=== PATIENT | female | born 1970 | race Caucasian/White ===

== ENCOUNTER → 2017-11-19 08:45 | Outpatient (CLI) | payer OTHER, SELFPAY ==
--- NOTE | 2017-11-19 | IMM_PTH ---
PATIENT: BRISEIDA CAIN LOC: [facility] U#:[id number] AGE/SX: 54/F ROOM: RE11/19/[address]: Dr. Kevin Ruiz MD : 1970 BED: DIS: SPEC #: [id number] RECD: 11/20/17 11:39 STATUS: PADMA REHector #: [id number] KIN: 11/19/17 00:[address]: Kevin Ruiz DEPT: IMMUNOHISTOCHEMISTRY RECD BY: Marcy Almendarez ENTERED: 11/20/17 11:39 SP TYPE: IMMUNO OTHR DR: Laurel Rueda, ROOF PLUMBER-C Tissues: Right breast, NOS Procedures: CK8 (initial) CALPONIN-1 (add) P40 (add) PHYSICIAN & INSTITUTION [place] [address] SPECIMEN INFORMATION: Tissue Source: Right breast Clinical Info: Right post/lateral microcalcifications Specimen Number: [id number] #1 CPT code: 20667, 70893 x2 METHODOLOGY: Deparaffinized sections of prefer/formalin-fixed tissue or PAP/DQ stained slides are incubated with monoclonal/polyclonal antibodies/oligonucleotide probes. Localization is made via biotin free immunoperoxidase method. Appropriate controls are performed and reacted as expected. Results on target cell population are indicated in the following table: RESULTS: ANTIBODY / CLONE RESULT Block 1 CK8 ([id number]) positive P40 (BC28) positive Calponin-1 (DX188C) positive These tests were developed and their performance characteristics determined by [facility]. They may not have been cleared or approved by the U.S. Food and Drug Administration. The FDA has determined that such clearance or approval is not necessary. INTERPRETATION: Right breast, stereotactic needle core biopsy: Benign breast tissue. AM:nicky 11/21/17
--- NOTE | 2017-11-19 08:49 | PCM.HP.BLA ---
History and Physical Date of Admission: 11/19/17 HISTORY AND PHYSICAL - BREAST COMPLAINT ? Panda Moore 1970 ? ? REFERRING PHYSICIAN: ~~Laurel Rueda (Radha* ? CHIEF COMPLAINT: ~~Right breast microcalcifications ? HPI: The patient is a 46 year old female with a complaint of an abnormal mammogram. ~The patient had a mammogram on July 27 of August 01, 2017~which demonstrated: ? IMPRESSION: SUSPICIOUS FINDING - BIOPSY SHOULD BE CONSIDERED The clustered regional amorphous calcifications in the right breast are suspicious of malignancy. ?A stereotactic biopsy is recommended. Jose Antonio schwartz/deshawn:08/01/2017 15:37:59 Facilities Clerk: Delmis LEMA)(Fredo), [facility] letter sent: Abnormal Mammogram BI-RADS: 4 Suspicious finding - Biopsy should be considered Fruit Rancher: Deshawn Transcribe Date/Time: Aug 01 2017 ?3:26P Dictated by: JOSE ANTONIO TELLEZ MD This examination was interpreted and the report reviewed and electronically signed by: JOSE ANTONIO TELLEZ MD on Aug 01 2017 ?3:37PM ?EST Results-Findings * * *Final Report* * * DATE OF EXAM: Aug 01 2017 ?3:26PM ? WRW ?~0620 ?- ?BECK DIAGNOSTIC JAJA ?/ PROCEDURE REASON: CALL BACK BILATERAL BREAST / ABNORMAL MAMMOGRAM ??~?~ * * * * Physician Interpretation * * * * RESULT: #[id number] - BECK DIAGNOSTIC JAJA BILATERAL DIGITAL DIAGNOSTIC MAMMOGRAM WITH CAD: 08/01/2017 HISTORY: Call Back Bilateral Breast / Abnormal Mammogram. RESULT: TECHNIQUE: ?The study was acquired using full field digital technology and interpreted from soft copy. Current study was also evaluated with a Computer Aided Detection (CAD). Comparison is made to exams dated: ?07/27/2017 mammogram - [facility], 07/18/2016 mammogram - [facility], 06/20/2016 mammogram - [facility], 03/04/2015 mammogram - [facility], and 02/17/2015 mammogram - [facility]. The tissue of both breasts is heterogeneously dense. This may lower the sensitivity of mammography. Subtle left calcifications appear to be stable since 2014 and appear to be within the skin. There are clustered regional amorphous calcifications in the right breast superior lateral quadrant posterior depth. No other significant masses, calcifications, or other findings are seen in either breast. ? ? ? The patient denies a history of breast masses. ~She does not~~perform a self breast exam routinely. ~She notes no skin changes. ~She denies nipple discharge. ~She notes no axillary masses. ~She notes no family history of breast problems. ~She notes no significant breast trauma. ~She had a previous left breast biopsy for microcalcifications which returned as benign~in the past. ? ? The patient is being seen by me today at the request of Laurel Rueda CNP~~for my opinion and advice regarding breast microcalcifications. ? PAST?MEDICAL?HISTORY PAST MEDICAL HISTORY Diagnosis Date Abnormal mammogram, unspecified 03/16/2015 Depression ? Dysmetabolic syndrome X ? Hemorrhoids 05/27/2014 Impaired glucose tolerance test ? Leiomyoma of uterus, unspecified ? Rectocele 05/27/2014 RHINITIS CHRONIC 11/14/2005 Unspecified sleep apnea ? ~~ ? ? PAST?SURGICAL?HISTORY PAST SURGICAL HISTORY Procedure Laterality Date APPENDECTOMY ? ? BREAST BIOPSY W/STEREOTACTIC GUIDANCE Left 04-01-15 D&C, DIAG AND/OR THERAPEUTIC ? 11/30/06 ? missed AB ENDOMETRIAL BIOPSY ? 01/23/2013 L'SCOPE DX W/WO BRUSHINGS/WASHINGS ? ? ? Laparoscopy/hysteroscopy/chromotubation LAP CHOLECYSTECT/CHOLANGIOGRAPHY ? 09/20/09 ? Normal IOC REMOVAL ADENOIDS,PRIMARY,<12 Y/O ? ? ? Adenoidectomy REMOVAL OF OVARY(S) ? 11/30/06 ? Laparascpic RSO- mature teratoma REMOVAL OF TONSILS,<12 Y/O ? ? ? Tonsillectomy ? ? ? CURRENT?MEDICATIONS ? Current Outpatient Prescriptions: escitalopram oxalate (LEXAPRO) 10 mg tablet Take 1 tablet by mouth once daily. Disp: 30 tablet Rfl: 3 metFORMIN ER (GLUCOPHAGE XR) 500 mg 24 hr tablet Take 2 tablets by mouth twice daily. Disp: 360 tablet Rfl: 3 buPROPion SR (ZYBAN SR; WELLBUTRIN SR) 150 mg 12 hr tablet Take 1 tablet by mouth twice daily. Disp: 180 tablet Rfl: 3 blood sugar diagnostic ([employer] ULTRA TEST) test strip USE INSTRUCTED ONCE DAILY Disp: 100 Strip Rfl: 0 COMPOUNDED PRESCRIPTION CPAP supplies DX:G47.33 Disp: 1 Each Rfl: 12 hydrocortisone 2.5 % cream Apply 1 application to affected area twice daily. Apply to affected area (under breast) sparingly. Disp: 20 g Rfl: 0 Omeprazole 40 mg capsule Take 1 capsule by mouth once daily. Disp: 30 capsule Rfl: 2 Magnesium Oxide 500 mg tab Take 1 tablet by mouth daily at bedtime. Disp: Rfl: 0 CPAP Initiate CPAP @ 14 cm of water with humidification. Mask (per patient preference) optional chin strap (if indicated) , filters, tubing, humidifier and lifetime supplies. Disp: 1 Device Rfl: 0 levonorgestrel (MIRENA) 20 mcg/24 hour (5 years) IUD 1 Each by INTRAUTERINE route continuous. Disp: 1 Each Rfl: 0 scopolamine 1.5 mg TRANSDERM. Apply 1 Patch as directed every 72 hours. Apply patch to skin 4 hrs before travel. Disp: 6 Patch Rfl: 1 pravastatin (PRAVACHOL) 20 mg tablet Take 1 tablet by mouth daily at bedtime. HOLD Disp: Rfl: ? No current facility-administered medications for this visit. ? ALLERGIES: Review of patient's allergies indicates no known allergies. ? PERSONAL HISTORY: SOCIAL?HISTORY Social History ~~Marital status: ~~~~~~~~~~~Spouse name: ~~~~~~~~~~~~~~~~~~ ~~Years of education: 16 ~~~~~~~~~~~~~Number of children: 0 ~~~~~~~~ ? 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 Social History Main Topics ~~Smoking status: Never Smoker ~~~~~~~~~~~~~~~~~~~~~~~~~~~~~~~~~~~~~~~~~~~~~~~~~~~~~~~~~ ? ~~Smokeless status: Never Used ~~~~~~~~~~~~~~~~~~~ ~~Alcohol use: No ~~~~~~~~~ ~~Drug use: No ~~~~~~~~~ ~~Sexual activity: Yes ~~~~~~~~~~~~~~Partners with: Male ~~~~~ control/protection: IUD ? ~~ ? FAMILY HISTORY: FAMILY?HISTORY FAMILY HISTORY Problem Relation Age of Onset Colon Cancer Mother ? ? ? 50's Coronary Artery Disease Mother ? Arthritis Mother ? Heart Mother ? ? ? AR Lipids Mother ? Diabetes Father ? Hypertension Father ? Lipids Father ? ? ? REVIEW OF SYMPTOMS: ~~The review of systems data was entered by the nurse and reviewed by me ? Nursing Notes: America Cortez Ma ~08/10/2017 ~4:04 PM ~Signed REVIEW OF SYSTEMS: ~~~~~General:~~~The patient denies fatigue, denies weight loss, denies weight gain, denies feeling hot, and denies feelings of cold. ~~~~~Eyes: ~The patient denies glaucoma, denies eye injury/surgery, wears glasses or contacts. ~~~~~Ear/Nose/Throat: ~The patient denies allergies, denies hayfever, denies ear infections, and denies bloody noses. ~~~~~Cardiovascular: ~The patient denies chest pain, denies heart disease, denies high blood pressure,denies cardiac stent, denies prior heart attack, denies irregular heart beat, denies high cholesterol, ~denies poor circulation, denies heart failure, other cardiac issues, denies claudication, denies cold feet, denies peripheral arterial stent. ~~~~~Respiratory: ~The patient denies tuberculosis, denies pneumonia, denies frequent cough, denies pulmonary embolism, denies shortness of breath, and denies coughing up blood. ~~~~~Gastrointestinal: ~The patient denies difficulty swallowing, NOTES acid reflux, denies ulcers, denies vomiting, denies jaundice/hepatitis, denies gallbladder problems, denies black or tarry stools, NOTES hemorrhoids, denies bleeding from rectum, denies diverticulitis, denies constipation, denies diarrhea, denies loss of stool control, and denies hernias. ~~~~~Kidney/Bladder: ~The patient denies kidney stones, denies urine infections, and denies bloody urine. ~~~~~Skin: ~The patient denies a history of skin cancer, denies bleeding/changing moles, and NOTES a history of skin rash. ~~~~~Neurologic: ~The patient denies a history of epilepsy/convulsions, denies headaches, denies head/spinal injuries, and denies stroke/TIA. ~~~~~Psychiatric: ~The patient denies psychiatric medications, NOTES depression, and denies voices, denies substance abuse. ~~~~~Endocrine: ~The patient denies thyroid disorders, NOTES diabetes, and denies hormonal problems. ~~~~~Hematologic: ~The patient denies a history of bruising, denies bleeding, and denies anemia, denies blood clots. ~~~~~Infections: ~The patient NOTES a history of measles and mumps, denies rheumatic fever, and denies sexually transmitted diseases. ~~~~~Musculoskeletal: ~The patient denies back pain/injury, denies back problems, NOTES sciatica, denies knee/foot trouble, denies arthritis, or denies gout. ? ? When was patient's last Mammogram screening? 08/01/2017 ? ~Last Colonoscopy: ~06/03/2014 ? America Cortez Ma ? ?? PHYSICAL EXAMINATION: ? General: ~The patient is 46 year old female, well nourished, well hydrated in no acute distress. ~The patient is oriented to time, place, and person. ? VITALS: Blood pressure 138/74, pulse 64, height 166.4 cm (5' 5.5), weight 96.4 kg (212 lb 9.6 oz).~Body mass index is 34.84 kg/(m^2).~ ? HEENT: ~Normal cephalic, ataumatic, pupils are equally round, sclera are anicteric, mucous membranes are moist, oropharynx is clear. ~Neck has no masses, asymmetry or lymphadenopathy. ~Thyroid is unremarkable. ? Respiratory: ~Clear to auscultation and percussion. ~Normal respiratory excursion and pattern. ? Cardiac: ~Examination is regular rate and rhythm. ? Abdominal exam: ~Soft, nontender, ~with no palpable masses. ~No hepatosplenomegaly. ~No palpable hernias. ? Rectal exam: ~exam deferred Extremities: ~no clubbing, cyanosis or edema. ~No adenopathy. ? Breast: ~Visual inspection reveals no retractions, nipple inversion, or skin changes. ~Palpation of the right breast reveals no dominant or suspicious masses, but multiple benign-feeling nodules. ~Palpation of the left breast reveals no dominant or suspicious masses, but multiple benign-feeling nodules. ~Axillary exam demonstrates no suspicious masses in either the left or right axilla. ~There is no nipple discharge expressed from either the left or right breast. ? LABORATORY VALUES: As Noted ? RADIOLOGIC STUDIES: ~As Noted ? Assessment ~ IMPRESSION: Right breast microcalcifications ? PLAN: ~I plan to perform a stereotactic biopsy of the right breast. ~The planned surgical procedure was discussed extensively with the patient. ~The risks, benefits, anticipated outcomes and possible complications were mentioned. ~My staff has also explained the procedure in understandable terms and the patient was given the option to take printed material concerning the planned procedure. ~The patient had the opportunity to ask questions concerning the planned procedure. ~The patient freely consents to the planned procedure. ~~~ ? Diagnoses: (R92.0) Microcalcification of right breast on mammogram ~(primary encounter diagnosis) ? Return to Clinic: The patient is instructed to follow-up with me after the testing has been completed. ? Kevin Ruiz MD
--- NOTE | 2017-11-19 09:16 | HP.PCM_ITS ---
History and Physical Date of Admission: 11/19/17 HISTORY AND PHYSICAL - BREAST COMPLAINT ? Panda Moore 1970 ? ? REFERRING PHYSICIAN: ~~Laurel Rueda (Radha* ? CHIEF COMPLAINT: ~~Right breast microcalcifications ? HPI: The patient is a 46 year old female with a complaint of an abnormal mammogram. ~The patient had a mammogram on July 27 of August 01, 2017~ which demonstrated: ? IMPRESSION: SUSPICIOUS FINDING - BIOPSY SHOULD BE CONSIDERED The clustered regional amorphous calcifications in the right breast are suspicious of malignancy. ?A stereotactic biopsy is recommended. Jose Antonio schwartz/deshawn:08/01/2017 15:37:59 Pipe Welder: Delmis LEMA)(Fredo), [facility] letter sent: Abnormal Mammogram BI-RADS: 4 Suspicious finding - Biopsy should be considered Nut Cracker: Deshawn Transcribe Date/Time: Aug 01 2017 ?3:26P Dictated by: JOSE ANTONIO TELLEZ MD This examination was interpreted and the report reviewed and electronically signed by: JOSE ANTONIO TELLEZ MD on Aug 01 2017 ?3:37PM ?EST Results-Findings * * *Final Report* * * DATE OF EXAM: Aug 01 2017 ?3:26PM ? WRW ?~0620 ?- ?BECK DIAGNOSTIC JAJA ?/ PROCEDURE REASON: CALL BACK BILATERAL BREAST / ABNORMAL MAMMOGRAM ??~?~ * * * * Physician Interpretation * * * * RESULT: #[id number] - BECK DIAGNOSTIC JAJA BILATERAL DIGITAL DIAGNOSTIC MAMMOGRAM WITH CAD: 08/01/2017 HISTORY: Call Back Bilateral Breast / Abnormal Mammogram. RESULT: TECHNIQUE: ?The study was acquired using full field digital technology and interpreted from soft copy. Current study was also evaluated with a Computer Aided Detection (CAD). Comparison is made to exams dated: ?07/27/2017 mammogram - [facility], 07/18/2016 mammogram - [facility], 06/20/2016 mammogram - [facility], 03/04/2015 mammogram - [facility], and 02/17/2015 mammogram - [facility]. The tissue of both breasts is heterogeneously dense. This may lower the sensitivity of mammography. Subtle left calcifications appear to be stable since 2014 and appear to be within the skin. There are clustered regional amorphous calcifications in the right breast superior lateral quadrant posterior depth. No other significant masses, calcifications, or other findings are seen in either breast. ? ? ? The patient denies a history of breast masses. ~She does not~~perform a self breast exam routinely. ~She notes no skin changes. ~She denies nipple discharge. ~She notes no axillary masses. ~She notes no family history of breast problems. ~She notes no significant breast trauma. ~She had a previous left breast biopsy for microcalcifications which returned as benign~in the past. ? ? The patient is being seen by me today at the request of Laurel Rueda CNP~ ~for my opinion and advice regarding breast microcalcifications. ? PAST?MEDICAL?HISTORY PAST MEDICAL HISTORY Diagnosis Date ? Abnormal mammogram, unspecified 03/16/2015 ? Depression ? ? Dysmetabolic syndrome X ? ? Hemorrhoids 05/27/2014 ? Impaired glucose tolerance test ? ? Leiomyoma of uterus, unspecified ? ? Rectocele 05/27/2014 ? RHINITIS CHRONIC 11/14/2005 ? Unspecified sleep apnea ? ~~ ? ? PAST?SURGICAL?HISTORY PAST SURGICAL HISTORY Procedure Laterality Date ? APPENDECTOMY ? ? ? BREAST BIOPSY W/STEREOTACTIC GUIDANCE Left 04-01-15 ? D&C, DIAG AND/OR THERAPEUTIC ? 11/30/06 ? missed AB ? ENDOMETRIAL BIOPSY ? 01/23/2013 ? L'SCOPE DX W/WO BRUSHINGS/WASHINGS ? ? ? Laparoscopy/hysteroscopy/chromotubation ? LAP CHOLECYSTECT/CHOLANGIOGRAPHY ? 09/20/09 ? Normal IOC ? REMOVAL ADENOIDS,PRIMARY,<12 Y/O ? ? ? Adenoidectomy ? REMOVAL OF OVARY(S) ? 11/30/06 ? Laparascpic RSO- mature teratoma ? REMOVAL OF TONSILS,<12 Y/O ? ? ? Tonsillectomy ? ? ? CURRENT?MEDICATIONS ? Current Outpatient Prescriptions: escitalopram oxalate (LEXAPRO) 10 mg tablet Take 1 tablet by mouth once daily. Disp: 30 tablet Rfl: 3 metFORMIN ER (GLUCOPHAGE XR) 500 mg 24 hr tablet Take 2 tablets by mouth twice daily. Disp: 360 tablet Rfl: 3 buPROPion SR (ZYBAN SR; WELLBUTRIN SR) 150 mg 12 hr tablet Take 1 tablet by mouth twice daily. Disp: 180 tablet Rfl: 3 blood sugar diagnostic ([employer] ULTRA TEST) test strip USE INSTRUCTED ONCE DAILY Disp: 100 Strip Rfl: 0 COMPOUNDED PRESCRIPTION CPAP supplies DX:G47.33 Disp: 1 Each Rfl: 12 hydrocortisone 2.5 % cream Apply 1 application to affected area twice daily. Apply to affected area (under breast) sparingly. Disp: 20 g Rfl: 0 Omeprazole 40 mg capsule Take 1 capsule by mouth once daily. Disp: 30 capsule Rfl: 2 Magnesium Oxide 500 mg tab Take 1 tablet by mouth daily at bedtime. Disp: Rfl: 0 CPAP Initiate CPAP @ 14 cm of water with humidification. Mask (per patient preference ) optional chin strap (if indicated) , filters, tubing, humidifier and lifetime supplies. Disp: 1 Device Rfl: 0 levonorgestrel (MIRENA) 20 mcg/24 hour (5 years) IUD 1 Each by INTRAUTERINE route continuous. Disp: 1 Each Rfl: 0 scopolamine 1.5 mg TRANSDERM. Apply 1 Patch as directed every 72 hours. Apply patch to skin 4 hrs before travel. Disp: 6 Patch Rfl: 1 pravastatin (PRAVACHOL) 20 mg tablet Take 1 tablet by mouth daily at bedtime. HOLD Disp: Rfl: ? No current facility-administered medications for this visit. ? ALLERGIES: Review of patient's allergies indicates no known allergies. ? PERSONAL HISTORY: SOCIAL?HISTORY Social History ~~Marital status: ~~~~~~~~~~~Spouse name: ~~~~~~~~~~~~~~~~~~ ~~Years of education: 16 ~~~~~~~~~~~~~Number of children: 0 ~~~~~~~~ ? 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 Social History Main Topics ~~Smoking status: Never Smoker ~~~~~~~~~~~~~~~~~~~~~~~~~~~~~~~~~~~~~~~~~~~~~~~~~ ~~~~~~~~ ? ~~Smokeless status: Never Used ~~~~~~~~~~~~~~~~~~~ ~~Alcohol use: No ~~~~~~~~~ ~~Drug use: No ~~~~~~~~~ ~~Sexual activity: Yes ~~~~~~~~~~~~~~Partners with: Male ~~~~~ control/protection: IUD ? ~~ ? FAMILY HISTORY: FAMILY?HISTORY FAMILY HISTORY Problem Relation Age of Onset ? Colon Cancer Mother ? ? ? 50's ? Coronary Artery Disease Mother ? ? Arthritis Mother ? ? Heart Mother ? ? ? MD ? Lipids Mother ? ? Diabetes Father ? ? Hypertension Father ? ? Lipids Father ? ? ? REVIEW OF SYMPTOMS: ~~The review of systems data was entered by the nurse and reviewed by me ? Nursing Notes: America Cortez Ma ~08/10/2017 ~4:04 PM ~Signed REVIEW OF SYSTEMS: ~~~~~General:~~~The patient denies fatigue, denies weight loss, denies weight gain, denies feeling hot, and denies feelings of cold. ~~~~~Eyes: ~The patient denies glaucoma, denies eye injury/surgery, wears glasses or contacts. ~~~~~Ear/Nose/Throat: ~The patient denies allergies, denies hayfever, denies ear infections, and denies bloody noses. ~~~~~Cardiovascular: ~The patient denies chest pain, denies heart disease, denies high blood pressure,denies cardiac stent, denies prior heart attack, denies irregular heart beat, denies high cholesterol, ~denies poor circulation, denies heart failure, other cardiac issues, denies claudication, denies cold feet, denies peripheral arterial stent. ~~~~~Respiratory: ~The patient denies tuberculosis, denies pneumonia, denies frequent cough, denies pulmonary embolism, denies shortness of breath, and denies coughing up blood. ~~~~~Gastrointestinal: ~The patient denies difficulty swallowing, NOTES acid reflux, denies ulcers, denies vomiting, denies jaundice/hepatitis, denies gallbladder problems, denies black or tarry stools, NOTES hemorrhoids, denies bleeding from rectum, denies diverticulitis, denies constipation, denies diarrhea, denies loss of stool control, and denies hernias. ~~~~~Kidney/Bladder: ~The patient denies kidney stones, denies urine infections , and denies bloody urine. ~~~~~Skin: ~The patient denies a history of skin cancer, denies bleeding/ changing moles, and NOTES a history of skin rash. ~~~~~Neurologic: ~The patient denies a history of epilepsy/convulsions, denies headaches, denies head/spinal injuries, and denies stroke/TIA. ~~~~~Psychiatric: ~The patient denies psychiatric medications, NOTES depression , and denies voices, denies substance abuse. ~~~~~Endocrine: ~The patient denies thyroid disorders, NOTES diabetes, and denies hormonal problems. ~~~~~Hematologic: ~The patient denies a history of bruising, denies bleeding, and denies anemia, denies blood clots. ~~~~~Infections: ~The patient NOTES a history of measles and mumps, denies rheumatic fever, and denies sexually transmitted diseases. ~~~~~Musculoskeletal: ~The patient denies back pain/injury, denies back problems , NOTES sciatica, denies knee/foot trouble, denies arthritis, or denies gout. ? ? When was patient's last Mammogram screening? 08/01/2017 ? ~Last Colonoscopy: ~06/03/2014 ? America Cortez Ma ? ?? PHYSICAL EXAMINATION: ? General: ~The patient is 46 year old female, well nourished, well hydrated in no acute distress. ~The patient is oriented to time, place, and person. ? VITALS: Blood pressure 138/74, pulse 64, height 166.4 cm (5' 5.5), weight 96.4 kg (212 lb 9.6 oz).~Body mass index is 34.84 kg/(m^2).~ ? HEENT: ~Normal cephalic, ataumatic, pupils are equally round, sclera are anicteric, mucous membranes are moist, oropharynx is clear. ~Neck has no masses , asymmetry or lymphadenopathy. ~Thyroid is unremarkable. ? Respiratory: ~Clear to auscultation and percussion. ~Normal respiratory excursion and pattern. ? Cardiac: ~Examination is regular rate and rhythm. ? Abdominal exam: ~Soft, nontender, ~with no palpable masses. ~No hepatosplenomegaly. ~No palpable hernias. ? Rectal exam: ~exam deferred Extremities: ~no clubbing, cyanosis or edema. ~No adenopathy. ? Breast: ~Visual inspection reveals no retractions, nipple inversion, or skin changes. ~Palpation of the right breast reveals no dominant or suspicious masses , but multiple benign-feeling nodules. ~Palpation of the left breast reveals no dominant or suspicious masses, but multiple benign-feeling nodules. ~Axillary exam demonstrates no suspicious masses in either the left or right axilla. ~ There is no nipple discharge expressed from either the left or right breast. ? LABORATORY VALUES: As Noted ? RADIOLOGIC STUDIES: ~As Noted ? Assessment ~ IMPRESSION: Right breast microcalcifications ? PLAN: ~I plan to perform a stereotactic biopsy of the right breast. ~The planned surgical procedure was discussed extensively with the patient. ~The risks, benefits, anticipated outcomes and possible complications were mentioned. ~My staff has also explained the procedure in understandable terms and the patient was given the option to take printed material concerning the planned procedure. ~The patient had the opportunity to ask questions concerning the planned procedure. ~The patient freely consents to the planned procedure. ~~ ~ ? Diagnoses: (R92.0) Microcalcification of right breast on mammogram ~(primary encounter diagnosis) ? Return to Clinic: The patient is instructed to follow-up with me after the testing has been completed. ? Kevin Ruiz MD
--- NOTE | 2017-11-19 09:45 | BRBX_PTH ---
PATIENT: BRISEIDA CAIN LOC: [facility] U#:[id number] AGE/SX: 54/F ROOM: RE11/19/[address]: Dr. Kevin Ruiz MD : 1970 BED: DIS: SPEC #: [id number] RECD: 11/19/17 11:38 STATUS: PADMA ERNESTO #: [id number] KIN: 11/19/17 09:[address]: Kevin Ruiz DEPT: SURGICAL PATHOLOGY RECD BY: Kevin Flores ENTERED: 11/19/17 12:47 SP TYPE: BREAST BX OTHR DR: Laurel Rueda, CATTLE DRIVER-C Tissues: Right breast, NOS Procedures: Surgery Specimen Level IV HEADER OPERATION: Right breast stereotactic needle core biopsy PRE-OP DIAGNOSIS: Right post/lateral microcalcifications TISSUE SUBMITTED: Right breast ISCHEMIC TIME: 2 minutes FIXATION TIME: 9.5 hours MICROSCOPIC DIAGNOSIS Right breast, stereotactic needle core biopsy: Fibrocystic change with clustered microcalcifications. No evidence of malignancy. AM:nicky 11/20/17 COMMENT Immunohistochemistry ([id number]) supports the above diagnosis. Case has been reviewed in consultation with Dr. Rizo who concurs with the above diagnosis. IDC:SJ MICROSCOPIC DESCRIPTION Slides are reviewed. GROSS DESCRIPTION Received in fixative is one container labeled with the patient's name and designated right breast. The specimen consists of multiple elongated fragments of bain-yellow fibroadipose tissue that in aggregate measure 5 x 3 x 0.3 cm. The entire specimen is submitted in two cassettes. / SJ:nicky 11/19/17 TC:2 CPT: 79891
--- NOTE | 2017-11-19 10:05 | OP.PCM_ITS ---
Report of Operation Date of Procedure: 11/19/17 Pre-Operative Diagnosis: right breast microcalcifications Post-Operative Diagnosis: right breast microcalcifications, successful biopsy Surgery/Procedure Performed:: right breast stereotactic biopsy, specimen radiograph, marker placement Type of Anesthesia:: Local Specimen's removed: right breast Description of Procedure: The patient was brought to the stereotactic suite and informed of the plan course of events. The right breast was positioned in the true lateral to medial position on the Hendrix stereotactic table. Mammographic image demonstrated the area of abnormality to be located in the center of the radiograph. Stereotactic images were then obtained which demonstrated good positioning of the abnormality for biopsy with good stroke mark anthony parameters. The breast was cleaned with Betadine area did one percent lidocaine was used to anesthetize the skin and a small stab incision made. An 8-gauge mammotome needle was placed into the pre-fire position. Stereotactic images demonstrated good positioning around the planned biopsy site. Local anesthetic injected deeply in the breast. The needle was deployed. Post deployment images demonstrated good positioning of the planned biopsy site. Multiple vacuum- assisted samples were obtained and [id number] fashion. Specimen radiograph demonstrated micro-calcifications in the sample. A gel marker clip was deployed. Post biopsy images demonstrated good position of the clip relative the biopsy cavity. The breast was removed from compression. Steri- Strips and a dressing applied. Post procedure mammogram images were obtained.
== END ==
PROVIDERS: Family Provider Nurse Practitioner Adult Health; PCP Nurse Practitioner Adult Health; Visit Provider Surgery
DX: R92.0 Mammographic microcalcification found on diagnostic imaging of breast (principal)
CPT/HCPCS: 19081; 88305; 88341; 88342; J7050

== ENCOUNTER → 2018-04-19 18:46 | Outpatient (CLI) | payer OTHER, SELFPAY ==
[2018-04-25 14:35] LABS: HPV APTIMA, High Risk Negative (Negative)
== END ==
PROVIDERS: Visit Provider Obstetrics & Gynecology
DX: Z12.4 Encounter for screening for malignant neoplasm of cervix (principal)
CPT/HCPCS: 88175; G0145

== ENCOUNTER → 2018-06-24 20:12 | Outpatient (CLI) | payer OTHER, SELFPAY | PROVIDERS: Family Provider Nurse Practitioner Adult Health; PCP Nurse Practitioner Adult Health; Visit Provider Nurse Practitioner Adult Health | DX: G47.33 Obstructive sleep apnea (adult) (pediatric) (principal); R53.83 Other fatigue; F51.01 Primary insomnia; Z99.89 Dependence on other enabling machines and devices; F32.89 Other specified depressive episodes | CPT/HCPCS: 95811 ==

== ENCOUNTER → 2019-01-01 08:10 | Outpatient (CLI) | payer OTHER, SELFPAY ==
--- NOTE | 2019-01-01 15:45 | NEURO ---
NCS and/or EMG Patient Report Ordering Doctor: Laurel Rueda DATE OF SERVICE: 01/01/19 Catie Moore is a 48-year-old female presents for electrodiagnostic testing of the left upper limb. She reports pain and weakness for the past 6 months. Letter diagnostic findings: Left median motor nerve demonstrates normal distal latency amplitude and conduction velocity. Left ulnar motor responses within normal limits. Normal left median and ulnar F-wave. Sensory latency of the median nerve is borderline prolonged at the wrist. Prolonged left median palmar latency. Normal ulnar and radial sensory responses. Decreased recruitment pattern noted in the left pronator teres and left triceps. No acute denervation is identified. Motor unit action potentials are normal amplitude and duration. Electrodiagnostic impression: This is an abnormal study in the left upper limb. 1. Elective diagnostic findings demonstrate left-sided median mononeuropathy. This is consistent with a mild left carpal tunnel syndrome. 2. Decreased recruitment pattern in the left pronator teres and triceps may be suggestive of denervation in the left C7 dermatome. No definitive radiculopathy can be identified on this examination. However if symptoms persist, may consider cervical spine imaging
== END ==
PROVIDERS: Family Provider Nurse Practitioner Adult Health; PCP Nurse Practitioner Adult Health; Referring Provider Nurse Practitioner Adult Health; Visit Provider Nurse Practitioner Adult Health
DX: M79.602 Pain in left arm (principal)
CPT/HCPCS: 95886; 95910

== ENCOUNTER 2022-06-22 10:15 | Emergency (ER) | payer OTHER, SELFPAY ==
[2022-06-22 10:16] VITALS: BP 157/85; PULSE 85; RESP 14; TEMP 36.2; O2SAT 98; BMI 34.9
--- NOTE | 2022-06-22 10:41 | EKG12_ITS ---
Test Reason : CP Blood Pressure : / mmHG Vent. Rate : 077 BPM Atrial Rate : 077 BPM P-R Int : 154 ms QRS Dur : 080 ms QT Int : 376 ms P-R-T Axes : 005 002 025 degrees QTc Int : 425 ms Normal sinus rhythm Normal ECG Confirmed by CANDACE OCHOA, OSMAR ([id number]), marketing editor THI BEACH ([id number]) on 06/26/2022 10:08:40 AM Referred By: RICHAR Confirmed By:YASHIRA MARIA MD
[2022-06-22 11:27] LABS: Absolute Lymphocyte Count 1.84 X10^3/uL (0.83-4.51); Absolute Neutrophil Count 3.6 X10^3/uL (2.0-7.7); Basophil# 0.03 X10^3/uL; Basophil% 0.5 % (0-1); Eosinophil# 0.24 X10^3/uL; Eosinophils% 3.9 % (0-5); Hematocrit 41.6 % (37-47); Hemoglobin 13.4 g/dL (12.0-15.0); Lymphocyte # 1.84 X10^3/ul (0.83-4.51); Lymphocyte % 29.7 % (19-41); Mean Corp Hgb Conc 32.2 g/dL (32-36); Mean Corpuscular Hgb 28.8 pg (27.0-32.0); Mean Corpuscular Volume 89.5 fL (81-99); Mean Platelet Vol. 9.4 fl (6.2-12.0); Monocyte# 0.48 X10^3/uL; Monocyte% 7.7 % (0-10); NRBC Flagged by Analyzer 0 % (0-5); Neutrophil # 3.58 X10^3/uL (2.7-7.7); Neutrophil % 57.7 % (47-70); Platelet Count 212 K/mm3 (150-450); RBC Distribution Width CV 13.6 % (11.6-14.6); RBC Distribution Width SD 44.1 fl (35.1-43.9); Red Blood Count 4.65 M/mm3 (4.2-5.4); White Blood Count 6.2 K/mm3 (4.4-11.0)
--- NOTE | 2022-06-22 11:35 | ED.VIS.CHEST ---
HPI History of Present Illness Chief Complaint: Chest Pain Narrative Narrative: 51-year-old female presenting with chest pain. She states she initially had this about a week ago. She states started on the right side of her chest and radiated across to the left and up into her jaw. She described the pain as sharp when it radiated across her chest from right to left. She does not have pain with deep inspiration. She is currently pain-free. She stated that this lasted about 30 minutes. She was not lightheaded or diaphoretic with it. She was not short of breath. She states this happens typically when she is asleep and it wakes her up. This morning she had an episode of this which lasted 2 to 3 minutes and woke her up. Patient sleeps with CPAP for sleep apnea. She states he has a history of diabetes, depression, cirrhosis. She has no cardiac history. She denies history of DVT/PE. 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 She has had a couple episodes of nausea throughout the week. Has not had fever, chills, cough, shortness of breath, myalgias. 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 Dysmetabolic syndrome X Encounter for IUD insertion (~03/27/13) History of endometrial biopsy (~01/23/13) Leiomyoma of uterus Unspecified hemorrhoids without mention of complication Unspecified sleep apnea Home Medications bupropion HCl 200 mg tablet,12 hr sustained-release (Wellbutrin SR) 200 mg PO BID 04/19/18 [History Last Taken Unknown] escitalopram oxalate 10 mg tablet (Lexapro) 10 mg PO QDAY 04/19/18 [History Last Taken Unknown] levonorgestrel 20 mcg/24 hours (8 yrs) 52 mg intrauterine device (Mirena) 1 insert intrauterine ONCE 04/19/18 [History Last Taken Unknown] magnesium oxide 500 mg capsule 500 mg PO QDAY 04/19/18 [History Last Taken Unknown] metformin 500 mg tablet 1,000 mg PO BID 04/19/18 [History Last Taken Unknown] omega-3 fatty acids 1,000 mg capsule (Fish Oil Concentrate) 1,000 mg PO QDAY 04/19/18 [History Last Taken Unknown] Allergy/AdvReac Type Severity Reaction Status Date / Time No Known Allergies Allergy Verified 06/22/22 10:16 Family History Mother Colon cancer CAD (coronary artery disease) Myocardial infarction Arthritis Hyperlipemia Father Diabetes Hypertension Hyperlipemia Surgical History H/O dilation and curettage (~11/30/06) History of appendectomy History of hysteroscopy History of tonsillectomy Hx of cholecystectomy (~09/20/09) Hx of removal of ovary (~11/30/06) Social History Smoking Status: Never smoker alcohol intake: never substance use type: does not use caffeine: Yes what type of physical activity do you participate in: aerobics frequency: 1-2 times per week seatbelt use: always do you feel safe at home: Yes additional 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 ED Constitutional Constitutional ED: Denies chills Eyes Eyes: Denies blurry vision or change in vision ENT ENT ED: Denies rhinorrhea Cardiovascular Cardiovascular: Reports chest pain Respiratory/Chest Respiratory/Chest: Denies cough or dyspnea Gastrointestinal Gastrointestinal: Reports nausea and vomiting; Denies abdominal pain Genitourinary Genitourinary ED: Denies dysuria or hematuria Musculoskeletal Musculoskeletal: Denies arthralgias, back pain or myalgias Integumentary Denies abscess or Abrasions Neurologic Neurologic: Denies headache(s) or paresthesias Psychiatric Psychiatric: Denies anxiety or depression EXAM Physical Exam Const Vital Signs: 06/22/22 10:16 06/22/22 13:23 06/22/22 13:23 Temperature 97.2 F L Temperature Source Temporal Pulse Rate 85 71 Respiratory Rate 14 22 H Blood Pressure 157/85 H 129/77 H Blood Pressure Mean 109 94 Pulse Ox 98 97 97 Oxygen Delivery Method Room Air Room Air Room Air Positive well nourished General Appearance ED: NAD; Negative for pallor HEENT Reports moist mucous membranes normocephalic Eyes EOMs intact bilaterally Chest Wall inspection of chest normal and palpation of chest normal Resp normal respiratory effort and clear to auscultation bilaterally Auscultation: Negative for rales, rhonchi or wheezes Cardio regular rate and regular rhythm GI normal to inspection, nondistended, normoactive bowel sounds Neuro oriented x3 and CN's II-XII intact bilaterally Sensorium / Orientation: awake and alert Motor Exam: strength 5/5 throughout Psych mental status grossly normal Skin no rashes or lesions noted General Skin Exam: Negative for jaundice or pallor Heart Score History: Slightly/Non-Suspicious ECG: Normal Age: >45 - <65 years Risk Factors: 1 or 2 Risk Factors Troponin: </= Normal Limit Score: 2 MDM MDM MDM Narrative Medical decision making narrative: 51-year-old female presenting with chest pain. She is currently pain-free. Her last episode was this morning when it woke her up from sleep and last about 2 minutes. She states it radiated from the right side of her chest to the left side and up into her jaw. No lightheadedness, diaphoresis, nausea, vomiting with this episode. She does report that she had a couple episodes of weakness and nausea and vomiting this week but does not related to chest pain. She is not had any viral symptoms. EKG obtained on arrival shows a normal sinus rhythm with a ventricular rate of 77 bpm without sign of ischemic change or dysrhythmia. Patient's heart rate 85, respirate 14, pulse ox 98% on room air and I have low suspicion for PE. Chest x-ray my interpretation shows no acute cardiopulmonary process and the radiologist agree. CBC within normal limits. BMP is also normal. High-sensitivity troponin less than 3. Delta troponin is 3. No significant interval change. Chest x-ray my interpretation shows no acute cardiopulmonary process and the radiologist agree. Patient counseled to follow-up with her PCP and she is given return precautions. She is amenable to this plan. Discharged stable condition. Impression: 1. Chest pain Lab Data Attestation: I reviewed the patient's lab results. Labs: Laboratory Results - last 24 hr 06/22/22 06/22/22 06/22/22 11:15 11:15 13:25 WBC 6.2 RBC 4.65 Hgb 13.4 Hct 41.6 MCV 89.5 MCH 28.8 MCHC 32.2 RDW Std Deviation 44.1 H RDW Coeff of Itz 13.6 Plt Count 212 MPV 9.4 Immature Gran % (Auto) 0.500 Neut % (Auto) 57.7 Lymph % (Auto) 29.7 [place] % (Auto) 7.7 Eos % (Auto) 3.9 Baso % (Auto) 0.5 Absolute Neuts (auto) 3.6 Absolute Lymphs (auto) 1.84 Nucleated RBC % 0 Sodium 140 Potassium 4.2 Chloride 109 H Carbon Dioxide 24.0 Anion Gap 7 BUN 10 Creatinine 0.84 Estim Creat Clear Calc 69.69 Est GFR (MDRD) Af Amer 91 Est GFR (MDRD) Non-Af 75 BUN/Creatinine Ratio 11.9 Glucose 111 H Calcium 10.2 H Troponin I High Sens < 3 L 3 Radiography Diagnostic Testing: Clinical Impression(s) from Imaging Studies Chest X-Ray 06/22/22 11:40 IMPRESSION: Normal x-ray examination of the chest. Electronically Signed: Qamar Altamirano MD at 12:05 EDT , Discharge Plan Triage Chief Complaint: Chest Pain ED Provider: Erlin Lu Dx/Rx/DC Orders Instructions: ED Chest Pain, Noncardiac Prescriptions: No Action levonorgestrel [Mirena] 20 mcg/24 hr (5 years) intrauterine device 1 insert Intrauterine ONCE metformin 500 mg tablet 1,000 mg PO BID bupropion HCl [Wellbutrin SR] 200 mg tablet extended release 12 hr 200 mg PO BID escitalopram oxalate [Lexapro] 10 mg tablet 10 mg PO QDAY omega-3 fatty acids [Fish Oil Concentrate] 1,000 mg capsule 1,000 mg PO QDAY magnesium oxide 500 mg capsule 500 mg PO QDAY Primary Care Provider: Dao Murguia Referrals: Laurel Rueda SWITCHBOARD WIRE WORKER HELPER, SWITCHBOARD WIRE WORKER HELPER-C [Non-Staff] - Disposition Disposition: Home, Self Care
--- NOTE | 2022-06-22 11:40 | RAD_ITS ---
STUDY: X-RAY CHEST REASON FOR EXAM: Female, 51 years old. Chest pain TECHNIQUE: Single AP portable view of the chest. COMPARISON: None. FINDINGS: EKG electrodes are seen. Hyperinflation. The lungs are clear. There is no demonstrated pleural abnormality. Normal size heart. Normal mediastinum and [place]. Normal visualized pulmonary arteries. Normal visualized aortic arch and descending thoracic aorta. Normal visualized thoracic spine. Normal visualized ribs, clavicles, and shoulders. There is no demonstrated abnormality of the visualized soft tissue structures of the upper abdomen. RAD/Chest 1 View (Portable) IMPRESSION: Normal x-ray examination of the chest. Electronically Signed: Qamar Altamirano MD at 12:05 EDT ,
[2022-06-22 11:43] LABS: Anion Gap 7 (5-15); BUN 10 mg/dL (7-18); BUN/Creat Ratio 11.9 RATIO (10-20); Calcium,Total 10.2 mg/dL (8.5-10.1); Chloride 109 mmol/L (98-107); Creatinine, Serum 0.84 mg/dL (0.55-1.02); EST Glomerular Filtration Rate 75 mL/min (>60); Est Glom Filt Rate - Afr Amer 91 mL/min (>60); Estimated Creatinine Clearance 69.69 ml/min; Glucose 111 mg/dL (74-106); Potassium 4.2 mmol/L (3.5-5.1); Sodium Level 140 mmol/L (136-145); Troponin-I HS (w/2H Reflex) < 3 pg/mL (3.0-54.0)
[2022-06-22 13:20] LABS: Reflex Troponin-HS? (from REC) Y
[2022-06-22 13:23] VITALS: BP 129/77; PULSE 71; RESP 22; O2SAT 97
[2022-06-22 13:59] LABS: Troponin-I HS 3 pg/mL (3.0-54.0)
[2022-06-22 14:34] VITALS: BP 132/81; PULSE 81
== END 2022-06-22 14:35 | disposition home or self-care (01) ==
PROVIDERS: Emergency Provider Student in an Organized Health Care Education/Training Program; PCP Family Medicine; Visit Provider Student in an Organized Health Care Education/Training Program
DX: R07.9 Chest pain, unspecified (principal); E11.9 Type 2 diabetes mellitus without complications; R11.0 Nausea; G47.30 Sleep apnea, unspecified; R53.1 Weakness
CPT/HCPCS: 71045; 80048; 84484; 85025; 93005; 99284; A4216

== ENCOUNTER → 2023-05-24 | Outpatient (CLI) | payer OTHER, SELFPAY | END | disposition home or self-care (01) | LOC: SL 20:02 | PROVIDERS: PCP Family Medicine; Referring Provider Nurse Practitioner Family; Visit Provider Nurse Practitioner Family | DX: G47.33 Obstructive sleep apnea (adult) (pediatric) (principal); E66.01 Morbid (severe) obesity due to excess calories | CPT/HCPCS: 95811 ==